=== PATIENT | female | born 1955 | race Caucasian/White ===

== ENCOUNTER 2018-01-18 07:40 | Day surgery (SDC) | payer OTHER ==
[2018-01-15 09:58] LABS: HEMATOCRIT 40.5 % (36.0-48.0); HEMOGLOBIN 13.5 g/dL (12-16); MCH 30.8 pg (26.0-34.0); MCHC 33.3 g/dL (31.0-37.0); MCV 92.3 fL (80.0-100.0); MEAN PLATELET VOLUME 10.4 fL (7.4-10.4); RBC 4.39 10x6/uL (4.00-5.40); RDW 11.9 % (11.5-14.5); WBC 5.3 10x3/uL (4.8-10.8)
[~2018-01-18] VITALS: Ht 167.6 cm; Wt 81.6 kg
--- NOTE | ~2018-01-18 | OP ---
PATIENT NAME: MEKHI ROCKWELL MEDICAL RECORD: [id number] :55 LOCATION:[facility] ADMISSION DATE: SURGEON: MARIO GIFFORD MD DATE OF OPERATION: 01/18/2018 PREOPERATIVE DIAGNOSIS: Medial and lateral meniscus tear of the left knee. POSTOPERATIVE DIAGNOSIS: Medial and lateral meniscus tear of the left knee. PROCEDURE: 1. Arthroscopic partial medial meniscectomy. 2. Arthroscopic partial lateral meniscectomy. SURGEON: Mario Gifford MD ANESTHESIA: General. INTRAOPERATIVE COMPLICATIONS: None. 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 The patient also was seen to have a radial beak type tear of the lateral meniscus. OPERATIVE SUMMARY IN DETAIL: After obtaining the appropriate preoperative orthopedic surgery consent as well as anesthetic consultation, evaluation and clearance, the patient was brought to the operating room and placed on the operating table in supine position. After adequate general laryngeal mask airway was administered, tourniquet was placed on the proximal aspect of left lower extremity. Left lower extremity was then prepped and draped in routine sterile fashion. The leg was elevated and exsanguinated, tourniquet was inflated to 350 mmHg. Routine inferolateral portal was established followed by superomedial portal and inferomedial portal. Diagnostic arthroscopy revealed the above findings. Attention was first turned to the medial aspect. Combination of meniscotomes as well as a 4.0 full radius resector were utilized to gently debride the medial meniscus back to stable meniscal elements. Light chondroplasty was performed to smoothen small areas of grade II and III chondromalacia. No flaking or exposed bone was noted. Attention was then turned to the lateral meniscus. With the knee in a [id number] position, meniscotome as well as the 4.0 resector were utilized to debride the lateral meniscus gently, the radial beak portion of it. Having completed this, the knee was insufflated with 30 cc of 0.25% Marcaine with epinephrine and 80 mg of Depo-Medrol. Arthroscopy portals were closed in routine interrupted fashion using 4-0 Prolene. Sterile dressings were applied. The patient was awakened and taken to the recovery room in stable condition. All final needle and sponge counts were correct. TRANSINT:[id number] Voice Confirmation ID: [id number] DOCUMENT ID: [id number] OPERATIVE REPORT [id number] MEKHI ROCKWELL MD, MARIO COLEMAN at 1023 CC: [id number] DICTATION DATE: 01/21/18804 [employer] [facility]: 01/21/18 0842 [facility] 01/18/18 [place] [id number] [place] [id number]
[2018-01-18 08:29] VITALS: BP 126/70; Ht 167.6 cm; Wt 81.6 kg
[2018-01-18] MEDS ORDERED: HYDROCODONE-APA1 TAB PO (10:53)
== END 2018-01-18 13:36 | disposition home or self-care (01) ==
LOC: D.OPS 07:40
PROVIDERS: Anesthesiology
DX: S83.242A Other tear of medial meniscus, current injury, left knee, initial encounter (principal); S83.282A Other tear of lateral meniscus, current injury, left knee, initial encounter; M94.262 Chondromalacia, left knee; Z01.812 Encounter for preprocedural laboratory examination